=== PATIENT | female | born 1955 | race Caucasian/White ===

== ENCOUNTER → 2016-07-14 | Outpatient (REF) ==
[~2016-07-14] MED LIST: HCTZ 25MG TAB25 MG PO; LACRI-LUBE1 OI1 OP; MUCINEX D1 TER PO; PREDNISONE20 MG PO; PREMARIN 0.9MG0.9 MG PO; TIAZAC240 MG PO; VALTREX1 GM PO; ZITHROMAX Z PA250 MG PO
== END ==
LOC: ZLAB.WCH 10:14
DX: Z01.89 Encounter for other specified special examinations (principal)

== ENCOUNTER → 2017-03-18 | Outpatient (CLI) | payer BC | LOC: COL.RAD 09:35 | DX: D72.829 Elevated white blood cell count, unspecified (principal); L92.0 Granuloma annulare; R74.8 Abnormal levels of other serum enzymes | CPT/HCPCS: A9503 ==

== ENCOUNTER → 2018-04-26 | Outpatient (CLI) | payer BC | LOC: SUN.DIA 10:22 | DX: E11.9 Type 2 diabetes mellitus without complications (principal); F17.210 Nicotine dependence, cigarettes, uncomplicated | CPT/HCPCS: G0108 ==

== ENCOUNTER 2018-11-22 12:17 | Day surgery (SDC) | payer BC ==
[2018-11-22] VITALS (10 sets, daily range): BP systolic 125–178; BP diastolic 67–95; PULSE 74–90; TEMP 98.4
[2018-11-22 12:48] LABS: HEMATOCRIT 39.3 % (37.0-47.0); HEMOGLOBIN 13.4 g/dl (12.5-16.0); MEAN CELL VOLUME 92 fl (80.0-100.0); MEAN CORPUSCULAR HEMOGLOBIN 31 pg (27.0-31.0); MEAN CORPUSCULAR HGB CONC 34 g/dl (33.0-37.0); MEAN PLATELET VOLUME 9.9 fl (7.4-10.4); PLATELET COUNT 288 K/mm3 (130-400); RED BLOOD COUNT 4.28 M/mm3 (4.10-5.30); REDCELL DISTRIBUTION WIDTH-CV 13.2 % (11.5-14.5)
[2018-11-22 13:00] LABS: INR 1.1 (0.8-3.0); PROTHROMBIN TIME 12.3 SECONDS (9.7-12.8)
[2018-11-22 13:01] LABS: CALCIUM 9.4 mg/dL (8.4-10.2); CREATININE, serum 0.61 (0.52-1.25); POTASSIUM 4.3 mmol/L (3.4-5.0)
[2018-11-22] MEDS ORDERED: CYMBALTA 60MG60 MG PO ×2 (13:10→13:26)
[2018-11-22] MEDS ORDERED: D3-5050000 IU PO (13:14)
[2018-11-22] MEDS ORDERED: VITAMIN D 50,1.25 MG PO (13:27)
[2018-11-22] MEDS ORDERED: GLUCOPHAGE XR500 M1 PO ×2 (13:28→14:30)
[2018-11-22] MEDS ORDERED: MOBIC15 MG PO (13:29)
[2018-11-22] MEDS ORDERED: VITAMIN B11000 MCG/M IM (13:29)
[2018-11-22] MEDS ORDERED: TRELEGY ELLIPT1 EACH IH (13:30)
[2018-11-22] MEDS ORDERED: CRESTOR20 MG PO (13:30)
[2018-11-22] MEDS ORDERED: K-DUR20 MEQ PO (13:31)
[2018-11-22] MEDS ORDERED: STOOL SOFTENER100 M2 PO (13:32)
[2018-11-22] MEDS ORDERED: PRILOSEC 20MG20 MG PO (13:32)
[2018-11-22] MEDS ORDERED: LASIX 20MG TABL20 MG PO (13:32)
[2018-11-22] MEDS ORDERED: CRANBERRY450 MG PO (13:33)
[2018-11-22] MEDS ORDERED: ASPIRIN E.C. 8181 MG PO (13:38)
--- NOTE | 2018-11-22 14:09 | NUR ---
SEE MERGE REPORTING FOR MEDICATION ADMINISTRATION TIMES AND INTRA/POST PROCEDURE SEDATION ASSESSMENTS.
--- NOTE | 2018-11-22 14:30 | NUR ---
Back from [facility]. Drowsy but oriented. Denies pain at this time. Right groin CD&I, soft to palpation with good pedal pulses. VSS
--- NOTE | 2018-11-22 14:42 | NUR ---
Pt transferred to [facility] unit at this time. Bedside handoff taking place between this RN and [facility]. Right femoral site observed; site soft and without bruising or sign of hematoma. Dressing intact; no bleeding noted. DP and PT pulses +1 and without change from pre-procedure strength.
--- NOTE | 2018-11-22 18:17 | NUR ---
Ambulated to bathroom with pt. Right groin soft to palpation. INT discontinued intact. Discharge instructions given.
--- NOTE | 2018-11-22 18:44 | NUR ---
Transferred to private car by maude
== END 2018-11-22 18:45 | disposition home or self-care (01) ==
LOC: COL.CAR 12:17
PROVIDERS: Internal Medicine Interventional Cardiology
DX: I20.9 Angina pectoris, unspecified (principal); R60.0 Localized edema; E11.9 Type 2 diabetes mellitus without complications; Z79.84 Long term (current) use of oral hypoglycemic drugs; Z79.82 Long term (current) use of aspirin; I10 Essential (primary) hypertension; G47.33 Obstructive sleep apnea (adult) (pediatric); J44.9 Chronic obstructive pulmonary disease, unspecified; Z82.49 Family history of ischemic heart disease and other diseases of the circulatory system; Z83.3 Family history of diabetes mellitus
CPT/HCPCS: J1200; J1644; J2250; J2930; J3010; Q9967

== ENCOUNTER 2019-06-12 21:32 | Emergency (ER) | payer BC ==
[~2019-06-12] VITALS: Ht 152.4 cm; Wt 85.5 kg
[~2019-06-12 21:32] MED LIST changes: +ASPIRIN E.C. 8181 MG PO; +CRANBERRY450 MG PO; +CRESTOR20 MG PO; +CYMBALTA 60MG60 MG PO; +D3-5050000 IU PO; +GLUCOPHAGE XR500 M1 PO; +K-DUR20 MEQ PO; +LASIX 20MG TABL20 MG PO; +MOBIC15 MG PO; +PRILOSEC 20MG20 MG PO; +STOOL SOFTENER100 M2 PO; +TRELEGY ELLIPT1 EACH IH; +VITAMIN B11000 MCG/M IM; +VITAMIN D 50,1.25 MG PO
[2019-06-12 21:45] VITALS: TEMP 98.3
[2019-06-12] MEDS ORDERED: HYZAAR 50-12.1 UDTAB (22:16)
[2019-06-12] MEDS ORDERED: COZAAR 25MG25 MG/TAB (22:16)
[2019-06-12] MEDS ORDERED: ELIQUIS 2.5 (22:17)
[2019-06-12] MEDS ORDERED: DILAUDID 2MG TAB2 MG PO (22:17)
[2019-06-12] MEDS ORDERED: LYRICA 25MG CAP25 MG (22:18)
[2019-06-12 23:00] VITALS: BP 133/64; PULSE 90
== END 2019-06-12 23:00 | disposition home or self-care (01) ==
LOC: COL.ER 21:32
DX: S92.212A Displaced fracture of cuboid bone of left foot, initial encounter for closed fracture (principal); I10 Essential (primary) hypertension; E11.9 Type 2 diabetes mellitus without complications; E78.00 Pure hypercholesterolemia, unspecified; Z79.01 Long term (current) use of anticoagulants; Z79.84 Long term (current) use of oral hypoglycemic drugs; X50.1XXA Overexertion from prolonged static or awkward postures, initial encounter

== ENCOUNTER 2024-04-06 09:49 | Emergency (ER) | payer MEDICARE ==
[~2024-04-06] VITALS: Ht 152.4 cm; Wt 77.3 kg
[~2024-04-06 09:49] MED LIST changes: +COZAAR 25MG25 MG/TAB; +DILAUDID 2MG TAB2 MG PO; +ELIQUIS 2.5; +HYZAAR 50-12.1 UDTAB; +LYRICA 25MG CAP25 MG
[2024-04-06] MEDS ORDERED: NS 1,000 ML IV ONE (10:45)
[2024-04-06] MEDS ORDERED: Morphine 4 MG/ML VIAL IV ONE ×3 (10:45→14:00)
[2024-04-06] MEDS ORDERED: Ondansetron 4 MG/2 ML VIAL IV ONE (10:45)
[2024-04-06 10:48] LABS: HEMATOCRIT 40.3 % (37.0-47.0); HEMOGLOBIN 13.4 g/dl (12.5-16.0); MEAN CELL VOLUME 92 fl (80.0-100.0); MEAN CORPUSCULAR HEMOGLOBIN 31 pg (27-31); MEAN CORPUSCULAR HGB CONC 33 g/dl (33.0-37.0); MEAN PLATELET VOLUME 9.4 fl (7.4-10.4); PLATELET COUNT 298 K/mm3 (130-400); RED BLOOD COUNT 4.37 M/mm3 (4.10-5.30); REDCELL DISTRIBUTION WIDTH-CV 14.2 % (11.5-14.5)
[2024-04-06 10:56] LABS: ALANINE AMINOTRANSFERASE 13 U/L (0-55); ALBUMIN 3.5 g/dL (3.4-4.8); ALKALINE PHOSPHATASE 121 U/L (40-150); ANION GAP 12 mmol/L (7-16); AST,SGOT 14 U/L (5-34); BILIRUBIN,TOTAL 0.2 mg/dL (0.2-1.2); BLOOD UREA NITROGEN 12 mg/dL (10-20); CALCIUM 9.2 mg/dL (8.4-10.2); CHLORIDE 108 mEq/L (98-107); CREATININE, serum 0.85 mg/dL (0.57-1.11); GLUCOSE 110 mg/dL (70-99); POTASSIUM 3.8 mEq/L (3.5-4.5); SODIUM 140 mEq/L (136-145); TOTAL PROTEIN 7.4 g/dl (6.2-8.1)
[2024-04-06 11:02] LABS: TROPONIN-I < 0.010 ng/mL (0.00-0.033)
[2024-04-06 11:33] LABS: EOSINOPHIL 2 % (0-4); LYMPHOCYTE 30 % (20.0-51.0); NEUTROPHILS 55 % (42.0-75.2); PLATELET ESTIMATE NORMAL (NORMAL)
[2024-04-06] MEDS ORDERED: Iohexol 300 - 100 ML VIAL IV ONE (12:18)
[2024-04-06] MEDS ORDERED: NS 100 ML IV SCH (12:19)
[2024-04-06 14:50] LABS: C-REACTIVE PROTEIN 1.07 mg/dL (0.00-0.50); LIPASE 42 U/L (8-78)
[2024-04-06] MEDS ORDERED: NORCO 325 MG-51 TAB PO (15:12)
[2024-04-06 15:45] VITALS: TEMP 97.1
[2024-04-06] MEDS ORDERED: HYDROmorphone 0.5 MG/0.5 ML SYRINGE IM ONE (16:00)
[2024-04-06 16:11] VITALS: BP 142/75; PULSE 70
== END 2024-04-06 16:11 | disposition home or self-care (01) ==
LOC: COL.ER 09:49
PROVIDERS: Nurse Practitioner
DX: K80.50 Calculus of bile duct without cholangitis or cholecystitis without obstruction (principal); Z87.891 Personal history of nicotine dependence
CPT/HCPCS: J1171; J2270; J2405; J7030; Q9967

== ENCOUNTER 2024-04-10 09:54 | Day surgery (SDC) | payer MEDICARE, OTHER ==
[~2024-04-10] VITALS: Ht 152.4 cm; Wt 77.8 kg
[~2024-04-10 09:54] MED LIST changes: +LR 1,000 ML IV SCH; +NORCO 325 MG-51 TAB PO
[2024-04-10] MEDS ORDERED: HYZAAR 50-12.1 UDTAB PO (11:18)
[2024-04-10] MEDS ORDERED: FARXIGA10 PO (11:19)
[2024-04-10] MEDS ORDERED: PREMARIN 0.60.625 M1 PO (11:19)
[2024-04-10] MEDS ORDERED: LYRICA 150MG C150 MG PO (11:20)
[2024-04-10] MEDS ORDERED: DALIRESP500 MCG PO (11:20)
[2024-04-10] MEDS ORDERED: KLOR-CON M2020 MEQ PO (11:21)
[2024-04-10] MEDS ORDERED: BROVANA15 MCG/2 M IH (11:22)
[2024-04-10] MEDS ORDERED: PULMICORT0.5 MG/2 M IH (11:23)
[2024-04-10] MEDS ORDERED: YUPELRI175 MCG/3 IH (11:23)
[2024-04-10] MEDS ORDERED: ATIVAN 1MG T1 MG/TAB PO (11:25)
[2024-04-10] MEDS ORDERED: ZOFRAN ODT4 MG PO (11:25)
[2024-04-10] MEDS ORDERED: PROVENTIL0.09 MG/A1 IH (11:29)
[2024-04-10 11:37] VITALS: BP 110/55; PULSE 75; TEMP 97.5
[2024-04-10] MEDS ORDERED: fentaNYL 50 MCG/ML 5 ML VIAL ONE (12:08)
[2024-04-10] MEDS ORDERED: Rocuronium 50 MG/5 ML Multi-Dose VIAL ONE (12:08)
[2024-04-10] MEDS ORDERED: Lidocaine PF 2% (20 MG/ML) 5 ML VIAL ONE (12:10)
[2024-04-10] MEDS ORDERED: dexAMETHasone 10 MG/ML VIAL ONE (12:11)
[2024-04-10] MEDS ORDERED: Ondansetron 4 MG/2 ML VIAL ONE (12:11)
[2024-04-10] MEDS ORDERED: fentaNYL 50 MCG/ML 1 ML SYRINGE/VIAL [PACU/SDC ONLY] IV PRN (13:30)
[2024-04-10] MEDS ORDERED: HYDROmorphone 1 MG/1 ML SYRINGE [PACU/SDC ONLY] IV PRN (13:30)
[2024-04-10] MEDS ORDERED: droPERidol 2.5 MG/ML 2 ML VIAL IV PRN (13:30)
[2024-04-10] MEDS ORDERED: Ondansetron 4 MG/2 ML VIAL IV PRN ×2 (13:30→13:45)
[2024-04-10] MEDS ORDERED: Morphine 2 MG/1 ML VIAL [PACU/SDC ONLY] IV PRN (13:30)
[2024-04-10] MEDS ORDERED: Meperidine 50 MG/ML 1 ML VIAL IV PRN (13:30)
[2024-04-10] MEDS ORDERED: Glycopyrrolate 0.2 MG/ML 1 ML VIAL ONE (13:33)
[2024-04-10] MEDS ORDERED: Neostigmine 1 MG/ML 10 ML Multi-Dose Vial ONE (13:33)
[2024-04-10] MEDS ORDERED: HYDROmorphone 0.5 MG/0.5 ML SYRINGE IV PRN (13:45)
[2024-04-10] MEDS ORDERED: HYDROmorphone 2 MG TAB PO PRN (13:45)
[2024-04-10] MEDS ORDERED: Albuterol 0.042% Neb Soln 1.25 MG/3 ML UD IH PRN (14:00)
[2024-04-10] MEDS ORDERED: Albuterol 0.083% Neb Soln 2.5 MG/3 ML UD IH PRN (14:15)
[2024-04-10 14:50] VITALS: BP 116/42; PULSE 66; TEMP 97
--- NOTE | 2024-04-10 14:50 | NUR ---
PATIENT RETURNED TO BAY 1 VIA CART, ALERT AND ORIENTED X3. RATES PAIN 7/10 TO ABDOMEN. PATIENT REQUESTED WARM BLANKET WHICH WAS APPLIED TO ABDOMEN. DENIES NAUSEA AND SHORTNESS OF BREATH. BREATHING REGULAR AND UNLABORED ON ROOM AIR. SKIN WARM AND DRY. NURSE HANDOFF COMPLETED IN ROOM WITH INSPECTION OF SURGICAL SITES. 3 ABDOMINAL BANDAIDS PRESENT, ALL CLEAN/DRY/INTACT. SURROUNDING SKIN INTACT. SEE CHART FOR VITAL SIGNS. CALL LIGHT IN REACH. 1457: PATIENT SPO2 FLUCTUATES FROM 88%-92% ON ROOM AIR. ENCOURAGED COUGH/DEEP BREATHE. PAIN RATING 7/10 TO ABDOMEN, DESCRIBED INTERMITTENT CRAMPING. DISCUSSED PAIN MANAGEMENT PLAN WITH PATIENT. PATIENT PAIN GOAL FOR THIS STAY IS 5/10. PATIENT AGREED TO TRY WALKING IN THE HALLWAY TO ASSIST IN PASSING GAS. 1505: PATIENT WALKED IN HALLWAY WITH NURSE AND AMBULATED TO RESTROOM WITH STEADY GAIT. VOIDED WITHOUT DIFFICULTY.
[2024-04-10 15:18] VITALS: BP 131/55; PULSE 87
--- NOTE | 2024-04-10 15:20 | NUR ---
PATIENT HAD SPRITE, ICE CHIPS, CHOCOLATE PUDDING AND [place] CRACKERS. FOOD AND DRINK TOLERATED WELL. NO DYSPHAGIA.
[2024-04-10 15:30] VITALS: BP 113/57; PULSE 81
[2024-04-10 15:45] VITALS: BP 122/65; PULSE 67
--- NOTE | 2024-04-10 15:49 | NUR ---
REPORTED 7/10 ABDOMINAL PAIN. SEE EMAR FOR FENTANYL ADMINISTERED.
[2024-04-10 16:08] VITALS: BP 119/56; PULSE 65
--- NOTE | 2024-04-10 16:22 | NUR ---
1607: DISCHARGE TEACHING COMPLETED WITH PRINTED EDUCATION AND INSTRUCTIONS SENT HOME WITH PATIENT. PATIENT VERBALIZED UNDERSTANDING. 1608: PATIENT REPORTS PAIN IS 4/10 TO ABDOMEN AND TOLERABLE. DENIES INTERVENTIONS. ALL 3 ABDOMINAL BANDAIDS CLEAN, DRY AND INTACT. RIGHT FOREARM IV REMOVED. GAUZE AND COBAN PLACED OVER SITE. 1622: PATIENT DISCHARGED HOME WITH FATHER, JAYCEE, TRANSPORT.
== END 2024-04-10 16:22 | disposition home or self-care (01) ==
LOC: SDCO 09:54
DX: K80.10 Calculus of gallbladder with chronic cholecystitis without obstruction (principal); Z86.718 Personal history of other venous thrombosis and embolism
CPT/HCPCS: J0690; J1100; J2405; J2704; J2710; J3010; J7120